=== PATIENT | male | born 1955 | race African-American/Black ===

== ENCOUNTER → 2018-12-30 | Outpatient (CLI) | payer OTHER ==
--- NOTE | 2019-01-10 12:28 | PFR/MVV ---
[facility] [place] [place] [address] PULMONARY FUNCTION MVV/REPORT Name: MOE COBURN Room #: REG AJ Jackman.#: [id number] Admission: 12/30/18 Attend Phys: Del Chung MD Discharge: Date of : 57 Report #: [id number] THIS REPORT FOR: //name// COPIES FOR: AGE: 63 SEX/RACE: M/B >> SPIROMETRY: (BTPS) Height: 65 in cm Weight: 124 lbs kg Exam Date: 12/30/18 PRE-RX POST-RX PRED BEST %PRED BEST %PRED %CHG FVC LITERS . 3.83 . 3.34 . 87 . 3.28 . 86 . -2 FEV1 LITERS . 2.74 . 1.55 . 57 . 1.40 . 51 . -10 FEV1/FVC % . 72 . 46 . 64 . 43 . 59 . -8 XTN94-07% L/Sec . 2.78 . 0.47 . 17 . 0.41 . 15 . -13 PEF L/SEC . 7.35 . 3.24 . 44 . 2.56 . 35 . -21 FEF50/FIF50 UNITLESS . . 0.41 . . 0.36 . . -13 MVV L/Min . 121 . 44 . 36 f 1/Min . . 80 . >> LUNG VOLUMES: (BTPS) PRE-RX POST-RX PRED AVG %PRED AVG %PRED %CHG VC Liters . 3.83 . 3.42 . 89 . . . TLC Liters . 5.44 . 6.47 . 119 . . . RV Liters . 2.06 . 3.05 . 148 . . . RV/TLC % . 38 . 47 . 124 . . . FRC PL Liters . 3.39 . 3.42 . 101 . . . FRC N2 Liters . . . . . . ERV Liters . 1.29 . 0.37 . 29 . . . IC Liters . 2.59 . 3.38 . 131 . . . >> DIFFUSION: DLCO ml/Min/mmHg . 17.1 . 7.1 . 42 . . . DL Ángel ml/Min/mmHg . 17.1 . 7.1 . 42 . . . DLCO/VA ml/Min/mmHg . 3.70 . 1.73 . 47 . . . VA Liters . 6.10 . 4.13 . 68 . . . [facility] [address] [address] PULMONARY FUNCTION MVV/REPORT Name: MOE COBURN Room #: REG [facility] [place].#: [id number] Admission: 12/30/18 Attend Phys: Del Chung MD Discharge: Date of : 57 Report #: [id number] COMMENTS: COMMENTS: >> RESISTANCE: PRE-RX PRED AVG %PRED Raw Total cmH20/L/Sec . . 5.05 . Raw Insp cmH20/L/Sec . . 3.34 . Raw Exp cmH20/L/Sec . . 4.56 . Raw cmH20/L/Sec . 1.34 . 3.80 . 283 Gaw L/Sec/cmH20 . 0.813 . 0.263 . 32 sRaw cmH20 Sec . 4.55 . 17.89 . 393 sGaw l/cmH20 Sec . 0.220 . 0.056 . 25 Vtq Liters . . 4.71 . # = OUTSIDE 95% CONFIDENCE INTERVAL CALIBRATION: PRED: 3.00 ACTUAL: EXP 3.01 INSP 3.02 [facility]-OL10-06 [facility]-05 N-1804-4 >> INTERPRETATION/IMPRESSION: CC: Del Chung SPIROMETRY: FEV1 is 1.55 liters (57%), FVC is 3.34 liters (87%), FEV1/FVC ratio is 46%. Post-bronchodilator therapy with no significant change. LUNG VOLUMES: Total lung capacity is 6.47 liters (119%). RV is 3.05 liters (148%). Diffusing capacity is 42%. IMPRESSION: Pulmonary function studies are consistent with a moderate-severe obstructive airflow defect with no significant response to bronchodilator therapy. There is mild air trapping, diffusing capacity is severely decreased. <ELECTRONICALLY SIGNED> By: Benedict Rosales MD 01/10/19 1228 Benedict Rosales MD /nt
== END ==
LOC: RAD 10:05
DX: J90 Pleural effusion, not elsewhere classified (principal); J45.909 Unspecified asthma, uncomplicated